=== PATIENT | female | born 1940 | race Caucasian/White ===

== ENCOUNTER 2018-03-30 06:46 | Emergency (ER) | payer MEDICARE, OTHER, SELFPAY ==
[2018-03-30 07:04] VITALS: BP 183/82; PULSE 97; RESP 17; TEMP 36.2; O2SAT 99
[2018-03-30 07:28] LABS: Appearance Urine UA SL CLOUDY; Bacteria Urine None Seen; Bilirubin Urine UA NEGATIVE (NEGATIVE); Color Urine UA YELLOW; Glucose Urine UA 1+ g/dL (Normal); Ketones Urine UA NEGATIVE (NEGATIVE); Leukocyte Esterase Urine UA TRACE (NEGATIVE); Nitrite Urine UA NEGATIVE (Negative); Occult Blood Urine UA 1+ (Negative); Protein Urine UA NEGATIVE (Negative); Specific Gravity Urine UA 1.015 (1.000-1.035); Urobilinogen Urine UA 0.2 E.U./dL (0.2); pH Urine UA 7.5 (4.5-8.0)
[2018-03-30 07:32] LABS: Amorphous Sediment Urine 1+; Culture Indicated Urine Cult Not Indicated; RBC Urine 1-5/HPF (0-5/HPF); WBC Urine 0-1/HPF (0-5/HPF)
--- NOTE | 2018-03-30 07:52 | ED.ABDPAIN ---
HPI - Abdominal Pain General Chief Complaint: Urogenital-Female Stated Complaint: pain in right side vomiting all night Time Seen by Provider: 03/30/18 07:41 Source: patient Mode of arrival: ambulatory Limitations: no limitations History of Present Illness HPI narrative: Patient complains of right flank pain and vomiting that started in the middle of the night. She states she was feeling totally fine yesterday, but that the pain awoke her from sleep. She states that the nausea said in shortly afterward. Patient states she has felt as though she needs to urinate, but has been unable to do so. She states that ?nothing wants to come out?. Patient states she has not had any other symptoms; no fever, cough, shortness of breath, chest pain, or hematuria. Patient has a colostomy bag, and states her output has been normal. Patient states she has a history of ovarian cancer but this is in remission and she is not currently being treated. She still has her gallbladder and appendix. No other complaints at this time. Pain at worst is 7/10; current pain is 5/10. Nothing makes pain better or worse. Pain is sharp in nature. Related Data Previous Rx's Medication Instructions Recorded hydrocodone-acetaminophen 1 tab PO Q4-6H PRN #10 tab 03/30/18 ondansetron 4 mg PO Q6-8H PRN #14 tab 03/30/18 tamsulosin [Flomax] 0.4 mg PO DAILY #7 cap 03/30/18 Allergies Allergy/AdvReac Type Severity Reaction Status Date / Time Penicillins Allergy Intermediate Verified 03/30/18 07:07 Review of Systems Review of Systems All systems reviewed & are unremarkable except as noted in HPI and below Constitutional Denies chills, Denies fever(s), Denies lethargy and Denies weakness Eyes Denies change in vision, Denies eye discharge, Denies irritation and Denies loss of vision ENT Ears, Nose, Mouth, and Throat: Denies change in voice, Denies neck pain and Denies sore throat Cardiovascular Denies chest pain, Denies irregular heart rhythm, Denies lightheadedness, Denies palpitations, Denies dyspnea, Denies dyspnea on exertion and Denies orthopnea Respiratory Denies cough, Denies dyspnea, Denies dyspnea on exertion and Denies wheezing Gastrointestinal Gastrointestinal: Reports abdominal pain (Flank, right), Denies change in bowel habits, Denies diarrhea, Reports nausea and Reports vomiting Genitourinary Denies hematuria, Denies flank pain, Denies urinary incontinence and Denies urinary urgency Musculoskeletal Denies neck pain Integumentary/Breasts Denies pruritus, Denies erythema, Denies rash and Denies wounds Neurologic Denies confusion, Denies loss of vision and Denies weakness Psychiatric Denies anxiety, Denies confusion, Denies depression, Denies homicidal ideation and Denies suicidal ideation Endocrine Denies palpitations Hematologic/Lymphatic Denies easy bruising Allergic/Immunologic Denies wheezing [facility] Medical History Colostomy in place (Acute) Ovarian cancer (Acute) Social History Smoking Status: Unknown if ever smoked Exam Initial Vital Signs Initial Vital Signs: Vital Signs Temperature 97.1 F L 03/30/18 07:04 Pulse Rate 97 H 03/30/18 07:04 Respiratory Rate 17 03/30/18 07:04 Blood Pressure 183/82 H 03/30/18 07:04 Pulse Oximetry 99 03/30/18 07:04 Const General: cooperative and well developed Nutritional Appearance: well nourished Orientation: alert, awake, oriented x3 and not confused [facility] Head: normocephalic and atraumatic Ears: external ears normal Nose: external nose normal and No nasal discharge Face and sinus: face symmetric and No dry mucous membranes Mouth: oral mucosae normal and moist mucous membranes Teeth and gingiva: dentition normal Eyes General: appearance normal, both eyes and all related structures Eyelids: eyelids normal Conjunctivae: conjunctivae normal Sclera: sclerae normal Pupils: PERRL EOM: EOM intact bilaterally Neck Neck: normal visual inspection, trachea midline, No lymphadenopathy, No midline deformity and No JVD Lymphatic: No lymphedema Chest Chest: normal inspection of the chest Resp Effort & Inspection: normal respiratory effort, able to speak in complete sentences, no respiratory distress and no use of accessory muscles Auscultation: clear to auscultation bilaterally, no rales, no rhonchi and no wheezes Cardio Rate: regular rate Rhythm: regular rhythm Heart Sounds: no click, no gallops, no murmurs and no rubs Pulses: normal peripheral pulses GI Inspection: non-distended Palpation: soft, no hepatosplenomegaly, No guarding, No pulsatile mass and tender (Moderate, right flank) Back/Spine/Pelvis Back: No CVA tenderness Cervical Spine: cervical ROM normal and No pain with cervical ROM Thoracic/Lumbar Spine: thoracic and lumbar spine normal to inspection Skin General: no rashes or lesions noted, No jaundice and No petechiae Neuro General: alert, oriented x3, gait normal and no focal motor deficits Speech: speech normal Extrem General: full ROM, no clubbing, cyanosis or edema, no pedal edema and no calf tenderness Psych Appearance: well kempt Mental Status: mental status grossly normal Attitude: cooperative Thought Content: normal and suicidality Judgment: judgment good Course Course Narrative: Patient was treated with IV fluids, Zofran, and Toradol initially, and worked up with CBC, CMP, and urinalysis. The patient's urinalysis was minimally positive, with only trace leukocyte esterase, did feel she should have a CT scan of the abdomen and pelvis to evaluate for possible urinary calculi. This was done, and did show right-sided calculi, with the largest stone 7 mm and located at the UVJ. I discussed this with the patient, who was feeling much better after symptomatic management. We discussed home management, as well as the usual indications for return, and the possible need for urology follow-up. Patient and family have expressed understanding. Orders Ordered: Discontinued Medications Sodium Chloride (Normal Saline 0.9%) 1,000 mls @ 1,000 mls/hr IV BOLUS ONE Stop: 03/30/18 08:48 Last Infusion: 03/30/18 09:54 Dose: 0 mls/hr Admin: 03/30/18 08:12 Dose: 1,000 mls/hr Ketorolac Tromethamine (Toradol) 30 mg IV NOW ONE Stop: 03/30/18 07:50 Last Admin: 03/30/18 08:12 Dose: 30 mg Ondansetron HCl (Zofran) 4 mg IV NOW ONE Stop: 03/30/18 07:50 Last Admin: 03/30/18 08:12 Dose: 4 mg Vital Signs - 8 hr 03/30/18 07:04 Temperature 97.1 F L Pulse Rate 97 H Respiratory Rate 17 Blood Pressure 183/82 H Pulse Oximetry 99 MDM - Abdominal Pain Medical Records Attestation: I reviewed the patient's medical records. Lab Data Attestation: I reviewed the patient's lab results. Result diagrams: 03/30/18 08:10 03/30/18 08:10 Lab Results 03/30/18 03/30/18 03/30/18 Range/Units 07:21 08:10 08:10 WBC 11.4 H (4.5-11.0) X10^3/uL RBC 4.85 (4.0-5.2) X10^6/uL Hgb 14.7 (12.0-16.0) g/dL Hct 44.1 (36-46) % MCV 91.0 (80-100) fL MCH 30.3 (26-34) PG MCHC 33.3 (30-36) % RDW 13.1 (11.6-14.8) % Plt Count 243 (150-400) X10^3/uL Neut % (Auto) 85.3 H (50-75) % Lymph % (Auto) 9.6 L (25-40) % [place] % (Auto) 4.5 (3-14) % Eos % (Auto) 0.1 L (2-4) % Baso % (Auto) 0.5 (0-2) % Neut # (Auto) 9800 H (0369-6752) /uL Sodium 139 (137-145) mmol/L Potassium 3.7 (3.4-5.1) mmol/L Chloride 100 (98-107) mmol/L Carbon Dioxide 27 (22-32) mmol/L BUN 22 H (7-17) mg/dL Creatinine 0.80 (0.52-1.04) mg/dL Estimated GFR > 60.0 (>60) mL/min BUN/Creatinine Ratio 27.5 H (6-22) Glucose 171 H (80-110) mg/dL Calcium 9.3 (8.4-10.2) mg/dL Total Bilirubin 0.4 (0.2-1.3) mg/dL AST 28 (14-36) IU/L ALT 24 (9-52) IU/L Alkaline Phosphatase 73 (38-126) U/L Total Protein 7.2 (6.3-8.2) g/dL Albumin 4.4 (3.5-5.0) g/dL Globulin 2.8 (1.7-4.1) g/dL Albumin/Globulin Ratio 1.6 (1.0-2.8) Urine Color Yellow Urine Appearance Sl cloudy Urine pH 7.5 (4.5-8.0) Ur Specific [place] 1.015 (1.000-1.035) Urine Protein Negative (Negative) Urine Glucose (UA) 1+ (Normal) g/dL Urine Ketones Negative (NEGATIVE) Urine Occult Blood 1+ H (Negative) Urine Nitrate Negative (Negative) Urine Bilirubin Negative (NEGATIVE) Urine Urobilinogen 0.2 (0.2) E.U./dL Ur Leukocyte Esterase Trace H (NEGATIVE) Urine RBC 1-5/hpf (0-5/HPF) Urine WBC 0-1/hpf (0-5/HPF) Amorphous Sediment 1+ Urine Bacteria None seen (None) Ur Culture Indicated? Cult not indicated Micro UA Comment Not Reportable Imaging Data CT scan - abdomen: Radiologist's impression: PROCEDURE: CT KIDNEY URETER BLADDER (KUB) INDICATIONS: Right flank pain, can't urinate TECHNIQUE: Noncontrast 5 mm thick sections acquired from the diaphragms to the symphysis. 5 mm thick coronal and sagittal reformats were then performed. For radiation dose reduction, the following was used: automated exposure control, adjustment of mA and/or kV according to patient size. COMPARISON: None. FINDINGS: Image quality: Excellent. Lung bases: Mild dependent atelectasis in posterior aspect of the lateral lung bases are seen. Heart size is normal. Urinary system: Enlarged right kidney is seen with marked distention of right renal collecting system and right renal pelvis. Markedly dilated right ureter is also seen to the level of the right UVJ. 7.5 mm calcification is seen in the region of right UVJ with a adjacent 2 mm calcification also seen. Moderate right perinephric fat stranding is seen. Left kidney is normal in size. There is no left-sided renal stone or hydronephrosis. No left perinephric fat stranding. Left ureter is normal in size. Bladder wall thickness is normal; no calcified bladder stones. A few phleboliths are seen scattered in bilateral lower pelvis. Other solid organs: Liver is normal in size. Gallbladder is within normal limits. Pancreas is normal in contours. Spleen is normal in size. No adrenal nodules. Peritoneum and bowel: Unenhanced bowel loops demonstrate normal wall thickness and caliber. No free fluid or air. Left-sided ostomy is seen. No evidence of bowel obstruction. Nodes and vessels: No retroperitoneal or mesenteric adenopathy by size criteria. Aorta and inferior vena cava are normal in caliber. Abdominal wall: Small umbilical hernia is seen containing fat and a short segment of small bowel loop with no evidence of incarceration.. Pelvis: No free pelvic fluid. No inguinal hernias or adenopathy. Bones: No suspicious bony lesions. No vertebral body compression fractures. IMPRESSION: 1. 7.5 mm and 2 mm right UVJ stones with moderate to severe right-sided hydronephrosis and hydroureter. Moderate right perinephric fat stranding. 2. No left-sided renal stone hydronephrosis. 3. Prior abdominal surgery with a left-sided ostomy in place. Small umbilical hernia containing a short segment of small bowel loop with no evidence of incarceration. No free fluid or free air. Dictated by: Bebeto Villafana M.D. on 03/30/2018 at 8:41 Approved by: Bebeto Villafana M.D. on 03/30/2018 at 8:47 Discharge Plan Departure Patient Disposition: Home Clinical Impression: Urinary calculi Discharge Date/Time: 03/30/18 09:55 Interventions: ED Discharge Assessment Last Done: 03/30/18 09:54 Instructions: DI for Kidney Stones Activity Restrictions/Additional Instructions: Your CT scan today shows 2 kidney stones coming down the right side. These have made it almost all the way to your bladder, and at this point, will be expected to pass well on their own. There are no obvious stones left in her kidneys, although you could form or over time. If you do not pass the stones by Mireya, please call the urologist's office to set up a follow-up appointment. Prescriptions: New hydrocodone-acetaminophen 5-325 mg tablet 1 tab PO Q4-6H PRN (Reason: pain) Qty: 10 RF: 0 tamsulosin [Flomax] 0.4 mg capsule 0.4 mg PO DAILY Qty: 7 RF: 0 ondansetron 4 mg tablet,disintegrating 4 mg PO Q6-8H PRN (Reason: nausea and vomiting) Qty: 14 RF: 0 Referrals: [facility] [Provider Group]
[2018-03-30] MEDS: KETOROLAC 60 MG/2 ML VIAL 30 MG IV (08:12)
[2018-03-30] MEDS: SODIUM CHLORIDE 0.9% 1,000 ML 1000 ML IV (08:12)
[2018-03-30] MEDS: ONDANSETRON 4 MG/2 ML INJ IV (08:12)
--- NOTE | 2018-03-30 08:16 | DI.CT.S_ITS ---
PROCEDURE: CT KIDNEY URETER BLADDER (KUB) INDICATIONS: Right flank pain, can't urinate TECHNIQUE: Noncontrast 5 mm thick sections acquired from the diaphragms to the symphysis. 5 mm thick coronal and sagittal reformats were then performed. For radiation dose reduction, the following was used: automated exposure control, adjustment of mA and/or kV according to patient size. COMPARISON: None. FINDINGS: Image quality: Excellent. Lung bases: Mild dependent atelectasis in posterior aspect of the lateral lung bases are seen. Heart size is normal. Urinary system: Enlarged right kidney is seen with marked distention of right renal collecting system and right renal pelvis. Markedly dilated right ureter is also seen to the level of the right UVJ. 7.5 mm calcification is seen in the region of right UVJ with a adjacent 2 mm calcification also seen. Moderate right perinephric fat stranding is seen. Left kidney is normal in size. There is no left-sided renal stone or hydronephrosis. No left perinephric fat stranding. Left ureter is normal in size. Bladder wall thickness is normal; no calcified bladder stones. A few phleboliths are seen scattered in bilateral lower pelvis. Other solid organs: Liver is normal in size. Gallbladder is within normal limits. Pancreas is normal in contours. Spleen is normal in size. No adrenal nodules. Peritoneum and bowel: Unenhanced bowel loops demonstrate normal wall thickness and caliber. No free fluid or air. Left-sided ostomy is seen. No evidence of bowel obstruction. Nodes and vessels: No retroperitoneal or mesenteric adenopathy by size criteria. Aorta and inferior vena cava are normal in caliber. Abdominal wall: Small umbilical hernia is seen containing fat and a short segment of small bowel loop with no evidence of incarceration.. Pelvis: No free pelvic fluid. No inguinal hernias or adenopathy. Bones: No suspicious bony lesions. No vertebral body compression fractures. IMPRESSION: 1. 7.5 mm and 2 mm right UVJ stones with moderate to severe right-sided hydronephrosis and hydroureter. Moderate right perinephric fat stranding. 2. No left-sided renal stone hydronephrosis. 3. Prior abdominal surgery with a left-sided ostomy in place. Small umbilical hernia containing a short segment of small bowel loop with no evidence of incarceration. No free fluid or free air. Dictated by: Bebeto Villafana M.D. on 03/30/2018 at 8:41 Approved by: Bebeto Villafana M.D. on 03/30/2018 at 8:47
[2018-03-30 08:18] LABS: Add Manual Diff / Slide Review NO; Basophils Percent Auto 0.5 % (0-2); Eosinophils Percent Auto 0.1 % (2-4); Hematocrit 44.1 % (36-46); Hemoglobin 14.7 g/dL (12.0-16.0); Lymphocytes Percent Auto 9.6 % (25-40); Mean Corpuscular HGB Conc 33.3 % (30-36); Mean Corpuscular Hemoglobin 30.3 PG (26-34); Monocytes Percent Auto 4.5 % (3-14); Neutrophils Absolute Auto 9800 /uL (1500-7000); Neutrophils Percent Auto 85.3 % (50-75); Platelet Count 243 X10^3/uL (150-400); Red Blood Cell Count 4.85 X10^6/uL (4.0-5.2); Red Cell Distribution Width 13.1 % (11.6-14.8); White Blood Cell Count 11.4 X10^3/uL (4.5-11.0)
[2018-03-30 08:27] LABS: Alanine Aminotransferase 24 IU/L (9-52); Albumin 4.4 g/dL (3.5-5.0); Albumin Globulin Ratio 1.6 (1.0-2.8); Alkaline Phosphatase 73 U/L (38-126); Aspartate Aminotransferase 28 IU/L (14-36); BUN Creatinine Ratio 27.5 (6-22); Bilirubin Total 0.4 mg/dL (0.2-1.3); Blood Urea Nitrogen 22 mg/dL (7-17); Calcium 9.3 mg/dL (8.4-10.2); Carbon Dioxide 27 mmol/L (22-32); Chloride 100 mmol/L (98-107); Estimated Glomerular Filt Rate > 60.0 mL/min (>60); Globulin 2.8 g/dL (1.7-4.1); Glucose 171 mg/dL (80-110); HEMOLYSIS < 15 (0-50); Potassium 3.7 mmol/L (3.4-5.1); Sodium 139 mmol/L (137-145); Total Protein 7.2 g/dL (6.3-8.2)
[2018-03-30 09:27] VITALS: BP 166/76; PULSE 77; RESP 14; O2SAT 99
[2018-03-30 09:54] VITALS: BP 109/89; PULSE 73; RESP 15; O2SAT 97
--- NOTE | 2018-03-30 09:56 | PC.NURSE ---
pt sent home with urine strainer, specimen cup and hat to urinate in. pt verbalized understanding of use of material.
== END 2018-03-30 09:55 | disposition home or self-care (01) ==
PROVIDERS: Emergency Medicine; Emergency Provider Emergency Medicine
DX: N20.0 Calculus of kidney (principal)
CPT/HCPCS: 36591; 74176; 80053; 81001; 85025; 96361; 96374; 96375; 99283; 99284; J1885; J2405

== ENCOUNTER 2021-01-27 12:24 | Inpatient (IN) | payer MEDICARE, OTHER, SELFPAY ==
[2021-01-27] VITALS (13 sets, daily range): BP systolic 125–151; BP diastolic 66–82; PULSE 81–103; RESP 16–35; TEMP 36.2–36.9; O2SAT 94–99; BMI 27.4
[2021-01-27] MEDS: PANTOPRAZOLE 40 MG VIAL IV ×2 (13:45→20:54)
[2021-01-27] MEDS: ONDANSETRON 4 MG/2 ML INJ IV (13:45)
[2021-01-27 13:49] LABS: Add Manual Diff / Slide Review NO; Basophils Absolute Auto 100 /uL (0-100); Eosinophils Absolute Auto 100 /uL (0-450); Eosinophils Percent Auto 0.4 % (2-4); Hematocrit 28.8 % (36-46); Hemoglobin 9.4 g/dL (12.0-16.0); Lymphocytes Absolute Auto 2800 /uL (1100-4500); Lymphocytes Percent Auto 22.8 % (25-40); Mean Corpuscular HGB Conc 32.8 % (30-36); Mean Corpuscular Hemoglobin 30.4 PG (26-34); Mean Corpuscular Volume 92.7 fL (80-100); Monocytes Absolute Auto 1000 /uL (0-900); Monocytes Percent Auto 8.2 % (3-14); Neutrophils Absolute Auto 8400 /uL (1500-7000); Neutrophils Percent Auto 67.6 % (50-75); Platelet Count 234 X10^3/uL (150-400); Red Cell Distribution Width 13.4 % (11.6-14.8); White Blood Cell Count 12.4 X10^3/uL (4.5-11.0)
[2021-01-27 14:05] LABS: Lactate (Lactic Acid) 1.2 mmol/L (0.7-2.1)
[2021-01-27 14:06] LABS: Alanine Aminotransferase 23 IU/L (<35); Albumin 3.9 g/dL (3.5-5.0); Albumin Globulin Ratio 1.6 (1.0-2.8); Alkaline Phosphatase 53 U/L (38-126); Aspartate Aminotransferase 27 IU/L (14-36); BUN Creatinine Ratio 47.5 (6-22); Bilirubin Total 0.2 mg/dL (0.2-1.3); Blood Urea Nitrogen 28 mg/dL (7-17); Calcium 8.7 mg/dL (8.4-10.2); Carbon Dioxide 27 mmol/L (22-32); Chloride 105 mmol/L (98-107); Estimated Glomerular Filt Rate > 60.0 mL/min (>60); Globulin 2.4 g/dL (1.7-4.1); Glucose 107 mg/dL (80-110); HEMOLYSIS < 15 (0-50); Potassium 3.8 mmol/L (3.4-5.1); Sodium 138 mmol/L (137-145); Total Protein 6.3 g/dL (6.3-8.2)
--- NOTE | 2021-01-27 14:40 | ED.GIBLEED ---
HPI - GI Bleed General Chief complaint: GI Bleed Stated complaint: Throwing Up Blood Time Seen by Provider: 01/27/21 14:40 Source: patient Mode of arrival: Ambulatory Limitations: no limitations History of Present Illness HPI Narrative: Patient is a 80-year-old female history of breast her x2, ovarian cancer, colon cancer presenting with 2 days of hematemesis and black tarry stool. She has an ostomy she has noted some tarry stool in her ostomy she also has vomited what she calls dark blood twice. She is dizzy and lightheaded when she walks. She a little short of breath. She has no abdominal pain. No fever or chills. Related Data Home Medications Medication Instructions Recorded Confirmed calcium carbonate 600 mg (1,500 1 tab PO DAILY 01/27/21 01/27/21 mg)-vitamin D3 200 unit tablet lisinopril 10 mg tablet 10 mg PO DAILY 01/27/21 01/27/21 loratadine 10 mg tablet 10 mg PO DAILY 01/27/21 01/27/21 vitamin E 200 unit capsule 200 unit PO DAILY 01/27/21 01/27/21 Allergies Allergy/AdvReac Type Severity Reaction Status Date / Time Penicillins Allergy Intermediate Verified 03/30/18 07:07 Review of Systems Review of Systems Narrative: GENERAL: Denies chills, fatigue, malaise, fever, sweats, travel HEENT: Denies sinus pain, ear pain, sore throat, difficulty swallowing, neck pain RESPIRATORY: Denies dyspnea, cough, wheezing, hemoptysis, sputum. CARDIOVASCULAR: Denies chest pain, palpitations, orthopnea, edema GASTROINTESTINAL: See HPI : Denies dysuria, frequency, incontinence, hematuria, urinary retention, flank pain. MUSCULOSKELETAL: Denies weakness, joint pain, or bony pain SKIN: No rash, no erythema, no pruritus NEUROLOGIC: Denies weakness, dizziness, headache, numbness, change in speech, confusion PSYCHIATRIC: No concerning psychosocial issues. 12 point review of systems is negative except for those stated above and HPI Patient History Medical History Colostomy in place HTN (hypertension) Ovarian cancer Surgical History H/O partial resection of colon H/O total hysterectomy with bilateral salpingo-oophorectomy (BSO) Family History Mother Cancer Daughter Cancer Family/Other Cancer Social History household members: spouse Smoking Status: Never smoker Smoking Status: Never smoker alcohol intake frequency: other Substance Use Type: does not use Exam Initial Vital Signs Initial Vital Signs: Vital Signs Temperature 98.4 F 01/27/21 13:06 Pulse Rate 103 H 01/27/21 13:06 Respiratory Rate 18 01/27/21 13:06 Blood Pressure 139/82 01/27/21 13:06 Pulse Oximetry 99 01/27/21 13:06 GENERAL: Alert well-appearing 80-year-old femaleand in [no acute] distress. HEENT: Head atraumatic,EOMI, pupils reactive, face symmetric, [moist] mucous membranes CARDIOVASCULAR: Regular rate and rhythm without murmurs, rubs or gallops. RESPIRATORY: Breath sounds equal bilaterally, no wheezes rales or rhonchi. ABDOMEN: Soft, nontender. Normoactive bowel sounds all 4 quadrants. No guarding or rebound. Left lower quadrant ostomy + guaiac : No CVA tenderness EXTREMITIES: Normal range of motion, no clubbing or edema. Neurovascularly intact NEUROLOGICAL: Alert and oriented x4.Normal gait and speech. Cranial nerves II through XII grossly intact. SKIN: Warm, dry, no laceration, no petechiae, no rashes or lesions. Course Orders Ordered: ED Orders 01/27/21 13:35 Complete Blood Count AUTO DIFF Stat Comprehensive Metabolic Panel Stat Lactate (Lactic Acid) Stat Type and Screen Stat 01/27/21 13:55 EKG-12 Lead Stat 01/27/21 15:05 COVID19 - ADMIT ([employer] swab/PCR) Stat Acetaminophen (Acetaminophen 325 Mg Tablet) 650 mg PO Q6HR PRN PRN Reason: Fever/Mild Pain (1-3) Sodium Chloride (Normal Saline 0.9%) 1,000 mls @ 75 mls/hr IV CONT DONNA Last Admin: 01/27/21 18:02 Dose: 75 mls/hr Documented by: KKNOTT Ondansetron HCl (Ondansetron 4 Mg/2 Ml Inj) 4 mg IV Q8HR PRN PRN Reason: Nausea And Vomiting Pantoprazole Sodium (Pantoprazole 40 Mg Vial) 40 mg IV BID DONNA Discontinued Medications Ondansetron HCl (Ondansetron 4 Mg/2 Ml Inj) 4 mg IV NOW ONE Stop: 01/27/21 13:06 Last Admin: 01/27/21 13:45 Dose: 4 mg Documented by: DEB Pantoprazole Sodium (Pantoprazole 40 Mg Vial) 40 mg IV NOW ONE Stop: 01/27/21 13:14 Last Admin: 01/27/21 13:45 Dose: 40 mg Documented by: DEB Polyethylene Glycol/Electrolytes (Fit4131/Sod Sulf,Bicarb,Cl/Kcl 4,000 Ml Solution) 2,000 ml PO NOW ONE Stop: 01/27/21 17:16 Last Admin: 01/27/21 18:02 Dose: 2,000 ml Documented by: GAVIN Vital Signs Vital signs: Vital Signs - 8 hr 01/27/21 13:06 01/27/21 14:48 01/27/21 15:00 Temperature 98.4 F Pulse Rate 103 H 91 H 88 Respiratory Rate 18 22 26 H Blood Pressure 139/82 Pulse Oximetry 99 97 99 01/27/21 15:01 Temperature Pulse Rate 86 Respiratory Rate 35 H Blood Pressure 151/69 H Pulse Oximetry 96 MDM - GI Bleed Lab Data Result diagrams: 01/27/21 13:35 01/27/21 13:35 Labs: Lab Results 01/27/21 01/27/21 01/27/21 Range/Units 13:35 13:35 13:35 WBC 12.4 H (4.5-11.0) X10^3/uL RBC 3.10 L (4.0-5.2) X10^6/uL Hgb 9.4 L (12.0-16.0) g/dL Hct 28.8 L (36-46) % MCV 92.7 (80-100) fL MCH 30.4 (26-34) PG MCHC 32.8 (30-36) % RDW 13.4 (11.6-14.8) % Plt Count 234 (150-400) X10^3/uL Neut % (Auto) 67.6 (50-75) % Lymph % (Auto) 22.8 L (25-40) % [place] % (Auto) 8.2 (3-14) % Eos % (Auto) 0.4 L (2-4) % Baso % (Auto) 1.0 (0-2) % Neut # (Auto) 8400 H (2498-9315) /uL Lymph # (Auto) 2800 (5575-2290) /uL [place] # (Auto) 1000 H (0-900) /uL Eos # (Auto) 100 (0-450) /uL Baso # (Auto) 100 (0-100) /uL Sodium 138 (137-145) mmol/L Potassium 3.8 (3.4-5.1) mmol/L Chloride 105 (98-107) mmol/L Carbon Dioxide 27 (22-32) mmol/L BUN 28 H (7-17) mg/dL Creatinine 0.59 (0.52-1.04) mg/dL Estimated GFR > 60.0 (>60) mL/min BUN/Creatinine Ratio 47.5 H (6-22) Glucose 107 (80-110) mg/dL Lactate (0.7-2.1) mmol/L Calcium 8.7 (8.4-10.2) mg/dL Total Bilirubin 0.2 (0.2-1.3) mg/dL AST 27 (14-36) IU/L ALT 23 (<35) IU/L Alkaline Phosphatase 53 (38-126) U/L Total Protein 6.3 (6.3-8.2) g/dL Albumin 3.9 (3.5-5.0) g/dL Globulin 2.4 (1.7-4.1) g/dL Albumin/Globulin Ratio 1.6 (1.0-2.8) Blood Type O Positive Antibody Screen Negative 01/27/21 Range/Units 13:35 WBC (4.5-11.0) X10^3/uL RBC (4.0-5.2) X10^6/uL Hgb (12.0-16.0) g/dL Hct (36-46) % MCV (80-100) fL MCH (26-34) PG MCHC (30-36) % RDW (11.6-14.8) % Plt Count (150-400) X10^3/uL Neut % (Auto) (50-75) % Lymph % (Auto) (25-40) % [place] % (Auto) (3-14) % Eos % (Auto) (2-4) % Baso % (Auto) (0-2) % Neut # (Auto) (1643-9523) /uL Lymph # (Auto) (3052-6214) /uL [place] # (Auto) (0-900) /uL Eos # (Auto) (0-450) /uL Baso # (Auto) (0-100) /uL Sodium (137-145) mmol/L Potassium (3.4-5.1) mmol/L Chloride (98-107) mmol/L Carbon Dioxide (22-32) mmol/L BUN (7-17) mg/dL Creatinine (0.52-1.04) mg/dL Estimated GFR (>60) mL/min BUN/Creatinine Ratio (6-22) Glucose (80-110) mg/dL Lactate 1.2 (0.7-2.1) mmol/L Calcium (8.4-10.2) mg/dL Total Bilirubin (0.2-1.3) mg/dL AST (14-36) IU/L ALT (<35) IU/L Alkaline Phosphatase (38-126) U/L Total Protein (6.3-8.2) g/dL Albumin (3.5-5.0) g/dL Globulin (1.7-4.1) g/dL Albumin/Globulin Ratio (1.0-2.8) Blood Type Antibody Screen ECG Data Interpretation: Normal sinus rhythm rate 85 MI interval 126 QRS [address] changes MDM Narrative Medical decision making narrative: Patient is having sinus symptoms consistent with GI bleeding she is guaiac positive. Hemoglobin hematocrit are down from her previous numbers in 2018. She is also symptomatic with dizziness lightheadedness and shortness of breath with exertion. She overall is hemodynamically stable. I have discussed with her colonoscopy she states that she will need a pediatric scope for her ostomy. MILLI, agrees with observation confirms that we do have a pediatric scope and recommends admit to medicine Dr. Rojas updated patient's symptoms and accept patient Discharge Plan Departure Patient Disposition: Admitted as Observation Clinical Impression: Acute GI bleeding Admit Date/Time: 01/27/21 15:01 Admit Provider: Olman Rojas
[2021-01-27 16:10] LABS: COVID19 - ADMIT (NP swab/PCR) Negative (Negative)
--- NOTE | 2021-01-27 17:10 | P.HP_ITS ---
History of Present Illness History of Present Illness Date Patient Seen: 01/27/21 Time Patient Seen: 17:10 Chief complaint: Throwing Up Blood Narrative: This is a 80-year-old female with a past medical history of hypertension, and history of ovarian, breast, and colon cancer status post partial colectomy with colostomy placement (BRCA2 +) who presented to the [facility] room today with 2 days of hematemesis and black stool from her ostomy. Over this time she has also felt lightheaded when she walks but denies any shortness of breath, abdominal pain, fever or chills. She denies any recent rashes, joint pains, or muscle aches. She thinks that she has increased slightly in her stoma output and it has been somewhat looser than her usual consistency. She had a couple episodes of vomiting over the last couple of days that were which she described as dark ramos in color, as well as very dark appearing stool. She states her last colonoscopy was over 6 years ago, and does not recall a prior EGD but may have had one in the remote past. In the emergency room, the patient's vital signs were unremarkable. Initial laboratory evaluation showed a mild leukocytosis with WBC 12.4, mild anemia with hemoglobin of 9.4, her previous lab testing showed a hemoglobin of 14 in 2018. Platelet count was unremarkable. Initial chemistries were also unremarkable. C OVID-19 testing was negative. In the emergency room, she was started on Protonix, had a type and screen, and the ER provider consult to General surgery who recommended admission to Medicine with a plan for colonoscopy and/or upper endoscopy tomorrow. Patient History Medical History (Updated 01/27/21 @ 17:11 by Olman Rojas DO) Colostomy in place HTN (hypertension) Ovarian cancer Surgical History (Updated 01/27/21 @ 17:11 by Olman Rojas DO) H/O partial resection of colon H/O total hysterectomy with bilateral salpingo-oophorectomy (BSO) Family & Social History Family History Mother Cancer Daughter Cancer Family/Other Cancer Social History: household members spouse Prior Living Arrangements House Safety & Behavioral: Feels Safe in Current Yes Environment Been Physically Hurt or No Threatened By a Person Suicidal Ideation Description None Suicide Plan Description No Plan Tobacco & Substance use: Smoking Status Never smoker alcohol intake frequency other Substance Use Type does not use Meds Home Medications and Allergies Home Medications Medication Instructions Recorded Confirmed Type calcium carbonate 600 mg (1,500 1 tab PO DAILY 01/27/21 01/27/21 History mg)-vitamin D3 200 unit tablet lisinopril 10 mg tablet 10 mg PO DAILY 01/27/21 01/27/21 History loratadine 10 mg tablet 10 mg PO DAILY 01/27/21 01/27/21 History vitamin E 200 unit capsule 200 unit PO DAILY 01/27/21 01/27/21 History Allergies Allergy/AdvReac Type Severity Reaction Status Date / Time Penicillins Allergy Intermediate Verified 03/30/18 07:07 Review of Systems Review of Systems Narrative: All other systems reviewed with the patient and are negative unless otherwise stated. Exam Vital Signs (past 8 hours): - 01/27/21 13:06 01/27/21 14:48 01/27/21 15:00 Temperature 98.4 F Pulse Rate 103 H 91 H 88 Respiratory Rate 18 22 26 H Blood Pressure 139/82 Pulse Oximetry 99 97 99 01/27/21 15:01 01/27/21 15:30 01/27/21 15:34 Temperature Pulse Rate 86 89 87 Respiratory Rate 35 H 34 H 20 Blood Pressure 151/69 H 140/66 140/66 Pulse Oximetry 96 97 98 01/27/21 16:00 01/27/21 16:35 Temperature 97.2 F L Pulse Rate 82 81 Respiratory Rate 19 16 Blood Pressure 125/66 139/70 Pulse Oximetry 96 95 Oxygen Delivery Method Room Air Oxygen Flow Rate 0 Narrative Exam Narrative: GENERAL APPEARANCE: Well developed, well nourished, in no acute distress. SKIN: Inspection of the skin reveals no rashes, ulcerations or petechiae. She has a slight pallor. HEENT: Normocephalic atraumatic, extraocular muscles are intact, oropharynx is clear and mucous membranes are moist, neck is supple without adenopathy NECK: Supple and symmetric. There was no thyroid enlargement, and no tenderness, or masses were felt. CHEST: Normal AP diameter and normal contour without any kyphoscoliosis. LUNGS: Auscultation of the lungs revealed no wheezes, rhonchi, or rales. CARDIOVASCULAR: There was a regular rate and rhythm without any murmurs, gallops, rubs. Peripheral pulses were 2+ and symmetric. ABDOMEN: Soft and nontender with normal bowel sounds. No ascites was noted. MUSCULOSKELETAL: There was no tenderness or effusions noted. Muscle strength and tone were normal. EXTREMITIES: No cyanosis, clubbing or edema. NEUROLOGIC: Alert and oriented x 3. Normal affect. Strength is +5/5 in the Upper Extremities and Lower Extremities Bilaterally. Sensation to touch was normal. Objective ECG Impression: Normal sinus rhythm, left ventricular hypertrophy, no ST or T-wave indications for ischemia. Labs Result Diagrams: 01/27/21 13:35 01/27/21 13:35 Labs: Laboratory Results - last 24 hr 01/27/21 01/27/21 01/27/21 13:35 13:35 13:35 WBC 12.4 H RBC 3.10 L Hgb 9.4 L Hct 28.8 L MCV 92.7 MCH 30.4 MCHC 32.8 RDW 13.4 Plt Count 234 Neut % (Auto) 67.6 Lymph % (Auto) 22.8 L [place] % (Auto) 8.2 Eos % (Auto) 0.4 L Baso % (Auto) 1.0 Neut # (Auto) 8400 H Lymph # (Auto) 2800 [place] # (Auto) 1000 H Eos # (Auto) 100 Baso # (Auto) 100 Sodium 138 Potassium 3.8 Chloride 105 Carbon Dioxide 27 BUN 28 H Creatinine 0.59 Estimated GFR > 60.0 BUN/Creatinine Ratio 47.5 H Glucose 107 Lactate Calcium 8.7 Total Bilirubin 0.2 AST 27 ALT 23 Alkaline Phosphatase 53 Total Protein 6.3 Albumin 3.9 Globulin 2.4 Albumin/Globulin Ratio 1.6 SARS-CoV-2 (PCR) Blood Type O Positive Antibody Screen Negative 01/27/21 01/27/21 13:35 15:05 WBC RBC Hgb Hct MCV MCH MCHC RDW Plt Count Neut % (Auto) Lymph % (Auto) [place] % (Auto) Eos % (Auto) Baso % (Auto) Neut # (Auto) Lymph # (Auto) [place] # (Auto) Eos # (Auto) Baso # (Auto) Sodium Potassium Chloride Carbon Dioxide BUN Creatinine Estimated GFR BUN/Creatinine Ratio Glucose Lactate 1.2 Calcium Total Bilirubin AST ALT Alkaline Phosphatase Total Protein Albumin Globulin Albumin/Globulin Ratio SARS-CoV-2 (PCR) Negative Blood Type Antibody Screen Assessment & Plan Assessment & Plan narrative: This is a 80-year-old female with a past medical history of hypertension, and history of ovarian, breast, and colon cancer status post partial colectomy with colostomy placement (BRCA2 +) who presented to the emergency room today with 2 days of hematemesis and black stool from her ostomy. Admitted for further management of her GI bleed. 1. GI bleeding - unclear if upper or lower in nature. BUN slightly elevated at 28. Diet tonight per surgery, NPO at midnight for colonoscopy with prep. Possible EGD tomorrow. - Continue protonix IV BID, IV fluids overnight - type and screen obtained. Goal Hg >7, unless further symptoms. - Appreciate surgical consultation by Dr. Mitchell. - follow h/h. - no recent fever, chills to suggest infetious etiology. 2. Acute blood loss anemia secondary to problem 1. - continue management as noted above 3. HTN - hold home lisinopril in setting of active bleeding. 4. History of colon, breast, ovarian cancer - reports no recent follow up with oncology. Last colonoscopy >6 years ago per patient. 5. BRCA2 + DVT: SCD Code: Full, surrogate decision maker is her (has parkinson's), or daughter. Discussed with patient she should consider forming an advanced directive or POLST form. Dispo: Admitted under observation status. I have utilized all available immediate resources to obtain, update, or review the patient's current medications. COVID-19 COVID-19 status: Negative Time Spent With Patient Critical Care time: I spent a total of [] minutes of critical care time on this patient's care today; this time is exclusive of procedural time. Quality MIPS - Admit I confirm the patient?s Advance Care Plan is present, Code status is documented, Surrogate decision maker is in patient?s record [If Yes, STOP here]: Yes
--- NOTE | 2021-01-27 17:44 | P.CONS_ITS ---
History of Present Illness Consult details Date Patient Seen: 01/27/21 Time Patient Seen: 17:44 Chief complaint: Throwing Up Blood Reason for consult: GI bleed Requesting provider: Jeri Barnes Narrative: Sudden onset of hematemesis. Had noticed dark stools as well. Fatique, no abdominal pain. No recent GI issues. Last colonoscopy long overdue. H/o colon cancer. Meds Home Medications and Allergies Home Medications Medication Instructions Recorded Confirmed Type calcium carbonate 600 mg (1,500 1 tab PO DAILY 01/27/21 01/27/21 History mg)-vitamin D3 200 unit tablet lisinopril 10 mg tablet 10 mg PO DAILY 01/27/21 01/27/21 History loratadine 10 mg tablet 10 mg PO DAILY 01/27/21 01/27/21 History vitamin E 200 unit capsule 200 unit PO DAILY 01/27/21 01/27/21 History Allergies Allergy/AdvReac Type Severity Reaction Status Date / Time Penicillins Allergy Intermediate Verified 03/30/18 07:07 Exam Vital Signs (past 8 hours): - 01/27/21 13:06 01/27/21 14:48 01/27/21 15:00 Temperature 98.4 F Pulse Rate 103 H 91 H 88 Respiratory Rate 18 22 26 H Blood Pressure 139/82 Pulse Oximetry 99 97 99 01/27/21 15:01 01/27/21 15:30 01/27/21 15:34 Temperature Pulse Rate 86 89 87 Respiratory Rate 35 H 34 H 20 Blood Pressure 151/69 H 140/66 140/66 Pulse Oximetry 96 97 98 01/27/21 16:00 01/27/21 16:35 01/27/21 17:15 Temperature 97.2 F L Pulse Rate 82 81 Respiratory Rate 19 16 Blood Pressure 125/66 139/70 Pulse Oximetry 96 95 98 Oxygen Delivery Method Room Air Oxygen Flow Rate 0 Const General: cooperative and comfortable Nutritional Appearance: average body habitus [facility] Head: normal to inspection Ears: hearing grossly normal bilaterally Eyes Conjunctivae: conjunctivae normal Sclera: sclerae normal Neck Neck: normal visual inspection and trachea midline Chest Chest: normal inspection of the chest Resp Effort & Inspection: normal respiratory effort and able to speak in complete sentences Cardio Rate: tachycardic Rhythm: regular rhythm GI Inspection: normal to inspection Other: colostomy in place, no bright red blood. Skin General: atrophy and dry skin Neuro General: patient alert and patient oriented x3 Cognition: normal cognition Psych Appearance: grossly normal and well kempt Judgment: judgment good Objective Labs Result Diagrams: 01/27/21 13:35 01/27/21 13:35 Labs: Laboratory Results - last 24 hr 01/27/21 01/27/21 01/27/21 13:35 13:35 13:35 WBC 12.4 H RBC 3.10 L Hgb 9.4 L Hct 28.8 L MCV 92.7 MCH 30.4 MCHC 32.8 RDW 13.4 Plt Count 234 Neut % (Auto) 67.6 Lymph % (Auto) 22.8 L [place] % (Auto) 8.2 Eos % (Auto) 0.4 L Baso % (Auto) 1.0 Neut # (Auto) 8400 H Lymph # (Auto) 2800 [place] # (Auto) 1000 H Eos # (Auto) 100 Baso # (Auto) 100 Sodium 138 Potassium 3.8 Chloride 105 Carbon Dioxide 27 BUN 28 H Creatinine 0.59 Estimated GFR > 60.0 BUN/Creatinine Ratio 47.5 H Glucose 107 Lactate Calcium 8.7 Total Bilirubin 0.2 AST 27 ALT 23 Alkaline Phosphatase 53 Total Protein 6.3 Albumin 3.9 Globulin 2.4 Albumin/Globulin Ratio 1.6 SARS-CoV-2 (PCR) Blood Type O Positive Antibody Screen Negative 01/27/21 01/27/21 13:35 15:05 WBC RBC Hgb Hct MCV MCH MCHC RDW Plt Count Neut % (Auto) Lymph % (Auto) [place] % (Auto) Eos % (Auto) Baso % (Auto) Neut # (Auto) Lymph # (Auto) [place] # (Auto) Eos # (Auto) Baso # (Auto) Sodium Potassium Chloride Carbon Dioxide BUN Creatinine Estimated GFR BUN/Creatinine Ratio Glucose Lactate 1.2 Calcium Total Bilirubin AST ALT Alkaline Phosphatase Total Protein Albumin Globulin Albumin/Globulin Ratio SARS-CoV-2 (PCR) Negative Blood Type Antibody Screen [facility] Medical History Colostomy in place HTN (hypertension) Ovarian cancer Surgical History H/O partial resection of colon H/O total hysterectomy with bilateral salpingo-oophorectomy (BSO) Family History (Updated 01/27/21 @ 17:47 by Olman Rojas DO) Mother Cancer Daughter Cancer Family/Other Cancer Social History household members: spouse Tobacco & Substance Use Smoking Status: Never smoker Assessment & Plan Assessment & Plan narrative: Sudden onset GI bleed, likely upper in origin. H/o colon cancer with no recent colonoscopy Plan: EGD and colonoscopy COVID-19 COVID-19 status: Negative Time Spent With Patient Critical Care time: I spent a total of [] minutes of critical care time on this patient's care today; this time is exclusive of procedural time.
[2021-01-27] MEDS: SODIUM CHLORIDE 0.9% 1,000 ML 75 ML IV (18:02)
[2021-01-27] MEDS: PEG3350/SOD SULF,BICARB,CL/KCL 4,000 ML SOLUTION 2000 ML PO (18:02)
[2021-01-27 21:42] LABS: Hematocrit 26.5 % (36-46); Hemoglobin 8.7 g/dL (12.0-16.0)
[2021-01-28] VITALS (25 sets, daily range): BP systolic 116–163; BP diastolic 67–97; PULSE 67–104; RESP 14–20; TEMP 36.2–37.1; O2SAT 93–98; BMI 27.4
--- NOTE | 2021-01-28 | PATH_ITS ---
[facility] Accession Number: [id number] . 01 Material submitted: . PART A: gastrointestinal site - ANTRAL BIOPSIES PART B: esophagus - DISTAL ESOPHAGUS BIOPSY . 01 Clinical history: . THROWING UP BLOOD . 02 Diagnosis: A. Antrum, Biopsies: Gastric antral mucosa with minimal chronic inflammation. Negative for Helicobacter organisms by immunohistochemistry. Negative for intestinal metaplasia. Negative for dysplasia or malignancy. . B. Distal Esophagus, Biopsy: Squamous mucosa with focal ulcer. Negative for fungal organisms on AB/PAS stain. Negative for cytomegalovirus or herpes simplex virus inclusions by immunohistochemistry. Negative for dysplasia or malignancy. I 02/03/2021 1513 Local . 02 Electronically signed: . Rahul Harvey MD, PhD, Pathologist NPI- [id number] . 01 Gross description: . Part A: ANTRAL BIOPSIES: Received in formalin is 1 fragment(s) of bhakta, soft tissue measuring 0.4 x 0.2 x 0.2 cm submitted entirely in 1 cassette(s) Part B: DISTAL ESOPHAGUS BIOPSY: Received in formalin are 3 fragment(s) of bhakta, soft tissue measuring 0.5 x 0.2 x 0.2 cm to 0.3 x 0.2 x 0.1 cm submitted entirely in 1 cassette(s) /GALLITO 01/29/2021 0146 Local . 02 Microscopic: . A. An immunohistochemical stain was performed to evaluate for Helicobacter organisms and is negative. The control stain showed appropriate reactivity. . B. An AB/PAS stain is negative for fungal organisms. Immunohistochemical stains are negative for cytomegalovirus or herpes simplex virus inclusions, respectively. All control stains show appropriate reactivity. . * This test was developed and its performance characteristics determined by [employer]. It has not been cleared or approved by the U.S. Food and Drug Administration. The FDA has determined that such clearance or approval is not necessary. This test is used for clinical purposes. It should not be regarded as investigational or for research. . . 02 Pathologist provided ICD-10: K29.70, K22.11 . 02 CPT . 340205, 632223, V74787, J02614, 020173 Performed at: 01 [facility] [address] [id number] MD Skyler Peterson MD Phone: [phone] Performed at: 02 [facility] [place] [address] [place] [id number] MD Zita Vargas MD Phone: [phone]
[2021-01-28 06:26] LABS: Add Manual Diff / Slide Review NO; Basophils Absolute Auto 0 /uL (0-100); Basophils Percent Auto 0.4 % (0-2); Eosinophils Absolute Auto 100 /uL (0-450); Eosinophils Percent Auto 1.9 % (2-4); Hemoglobin 7.2 g/dL (12.0-16.0); Lymphocytes Absolute Auto 2200 /uL (1100-4500); Mean Corpuscular Hemoglobin 29.9 PG (26-34); Mean Corpuscular Volume 93.6 fL (80-100); Monocytes Absolute Auto 800 /uL (0-900); Monocytes Percent Auto 9.8 % (3-14); Neutrophils Absolute Auto 4500 /uL (1500-7000); Neutrophils Percent Auto 58.9 % (50-75); Platelet Count 185 X10^3/uL (150-400); Red Cell Distribution Width 13.2 % (11.6-14.8); White Blood Cell Count 7.7 X10^3/uL (4.5-11.0)
[2021-01-28 06:27] LABS: Hematocrit 22.4 % (36-46)
[2021-01-28 06:34] LABS: Alanine Aminotransferase 18 IU/L (<35); Albumin 2.9 g/dL (3.5-5.0); Albumin Globulin Ratio 1.4 (1.0-2.8); Alkaline Phosphatase 39 U/L (38-126); Aspartate Aminotransferase 21 IU/L (14-36); Bilirubin Total 0.1 mg/dL (0.2-1.3); Blood Urea Nitrogen 15 mg/dL (7-17); Calcium 7.8 mg/dL (8.4-10.2); Carbon Dioxide 29 mmol/L (22-32); Chloride 106 mmol/L (98-107); Estimated Glomerular Filt Rate > 60.0 mL/min (>60); Globulin 2.1 g/dL (1.7-4.1); Glucose 95 mg/dL (80-110); HEMOLYSIS < 15 (0-50); Magnesium 1.9 mg/dL (1.6-2.3); Potassium 3.7 mmol/L (3.4-5.1); Sodium 137 mmol/L (137-145)
--- NOTE | 2021-01-28 10:25 | CM.DANOTE ---
DCP: Case received, EMR reviewed and met with patient. Introduced self and role. Was able to obtain information regarding patient's baseline activity status prior to hospitalization. DCP assessment completed with information currently available. Patient is a 80 year old female who admitted yesterday afternoon to the care of the hospitalist team. PCP: Dr. Johnson Porter. Payer: confirmed: Medicare/[employer] for Life. Patient came to the hospital via private vehicle secondary to her having nausea and vomiting, as well as black tarry stools. Patient was noted to be anemic, and holds current diagnosis of GI Bleed. She will be having transfusion today. She is also to be having a colonoscopy as well. Patient has ostomy, and has history of ovarian and colon cancer. Met with patient in her room. She was laying in bed, alert and oriented. Confirmed that patient resides in [place] with her spouse, Jj. She is independent at her baseline, does her own ostomy care, and uses no DME at her baseline. P: DCP to continue to follow. Patient should be able to go home when she is deemed medically stable. Rosa Maria Latham RN/Pipeline Construction Inspector Discharge Planning/Care Management CM Discharge Assessment Start: 01/28/21 10:22 Freq: Status: Active Protocol: Document 01/28/21 10:22 (Rec: 01/28/21 10:25 [id number]) Discharge Planning Assessment Assigned Business Ethics Professor Rosa Maria Latham RN/Pipeline Construction Inspector Advance Directives? No Advance Directives on File No History Provided By Patient,Medical Record Prior Living Arrangements House Household Members spouse Type of transporation used prior to Drives own vehicle admit Independent with ADL's Yes Is patient alert and oriented? Yes Caregiver for Another No Barriers to Discharge No Discharge Plan Home Transportation Arrangement Spouse Referrals Initiated None needed Whiteboard Updated in Patient Room with Yes name and ext. # of Business Ethics Professor Review Status In Process Next Review Type Continued Stay Review
[2021-01-28] MEDS: PANTOPRAZOLE 40 MG VIAL IV ×2 (10:28→21:04)
[2021-01-28] MEDS: SODIUM CHLORIDE 0.9% 1,000 ML 75 ML IV (13:41)
--- NOTE | 2021-01-28 14:53 | PC.NURSE ---
Day shift: Pt off unit for procedure at approx 1445.
[2021-01-28] MEDS: LACTATED RINGERS 1,000 ML 42 ML IV (15:12)
--- NOTE | 2021-01-28 15:16 | PM.PREOP ---
Pre-operative Note Interval Note History & Physical reviewed/Exam performed by Physician: Yes Changes to H&P: Yes H&P completed within 30 days and has changed as indicated here:: Patient received 2 units of PBRCs today. ASA Class (for procedural sedation): III
[2021-01-28] MEDS: LIDOCAINE 4% SOLN 50 ML 20 ML TOP (15:27)
--- NOTE | 2021-01-28 15:57 | P.OP.EGD&C_ITS ---
Operative Date/Time/Diagnoses Date of procedure: 01/28/21 Pre-op diagnosis: GI bleed Post-op diagnosis: same Procedure & Clinicians Surgeon: Chris Awad Procedure Notes Procedure in detail: Consent was obtained. The patient was taken to the endoscopy suite. Sedation was administered. A time out was performed. A bite block was placed. The endoscope was inserted and advanced to the duodenum. A photograph was taken. No abnormality was noted. The scope was withdrawn to the antrum. There was some patchy erythema but no melissa ulcerations. Random biopsies were taken from the antral mucosa using the regular forceps. The rest of the stomach was inspected and no other lesions were noted. The scope was retroflexed. There was a small hiatal hernia. The scope was straightened and withdrawn into the distal esophagus. There were some patches of erythema in the distal esophagus with some exudate. Biopsies were taken with forceps. Bleeding was minimal. The scope was withdra wn and the remainder of the esophagus was normal. We then attempted a colonoscopy through the colostomy. The bag was removed the the pediatric colonoscope was inserted through the colostomy. The scope was advanced to the transverse colon but there was too much opaque liquid stool to complete the procedure so it was terminated. Total EBL for the procedure was 20 mL. Post-procedure Disposition: PACU
[2021-01-28 17:20] LABS: Hemoglobin 10.8 g/dL (12.0-16.0); Mean Corpuscular HGB Conc 33.7 % (30-36); Mean Corpuscular Hemoglobin 30.6 PG (26-34); Mean Corpuscular Volume 90.6 fL (80-100); Platelet Count 182 X10^3/uL (150-400); Red Blood Cell Count 3.53 X10^6/uL (4.0-5.2); Red Cell Distribution Width 14.7 % (11.6-14.8); White Blood Cell Count 10.2 X10^3/uL (4.5-11.0)
--- NOTE | 2021-01-28 19:52 | P.PN_ITS ---
Subjective Subjective Date Patient Seen: 01/28/21 Time Patient Seen: 08:00 Interval history: Today she states she is feeling fine. She had some dark stools early, no BRBPR. No further vomiting. Exam Vital Signs (past 8 hours): - 01/28/21 13:39 01/28/21 15:06 01/28/21 15:59 Temperature 97.7 F 98.7 F Pulse Rate 81 88 83 Respiratory Rate 17 14 20 Blood Pressure 138/82 163/87 H 132/67 Pulse Oximetry 98 94 01/28/21 16:04 01/28/21 16:08 01/28/21 16:18 Temperature 98.6 F 98.5 F 97.1 F L Pulse Rate 84 79 78 Respiratory Rate 14 16 17 Blood Pressure 132/67 122/67 148/76 H Pulse Oximetry 94 97 95 01/28/21 16:33 01/28/21 16:48 01/28/21 17:18 Temperature 98.3 F 98.1 F Pulse Rate 79 94 H Respiratory Rate 16 18 Blood Pressure 120/67 123/80 Pulse Oximetry 98 93 94 Oxygen Delivery Method Room Air Oxygen Flow Rate 0 Narrative Exam Narrative: GENERAL APPEARANCE: no acute distress LUNGS: clear bilaterally, no wheezes, rhonchi, rales CARDIOVASCULAR: regular rate and rhythm with no murmurs ABDOMEN: Soft and nontender with normal bowel sounds Objective Labs Result Diagrams: 01/28/21 17:10 01/28/21 05:37 Labs: Laboratory Results - last 24 hr 01/27/21 01/27/21 01/28/21 13:35 21:00 05:37 WBC RBC Hgb 8.7 L Hct 26.5 L MCV MCH MCHC RDW Plt Count Neut % (Auto) Lymph % (Auto) [place] % (Auto) Eos % (Auto) Baso % (Auto) Neut # (Auto) Lymph # (Auto) [place] # (Auto) Eos # (Auto) Baso # (Auto) Sodium 137 Potassium 3.7 Chloride 106 Carbon Dioxide 29 BUN 15 Creatinine 0.60 Estimated GFR > 60.0 BUN/Creatinine Ratio 25.0 H Glucose 95 Calcium 7.8 L Magnesium Total Bilirubin 0.1 L AST 21 ALT 18 Alkaline Phosphatase 39 Total Protein 5.0 L Albumin 2.9 L Globulin 2.1 Albumin/Globulin Ratio 1.4 Blood Type O Positive Antibody Screen Negative Crossmatch See Detail 01/28/21 01/28/21 01/28/21 05:37 05:37 17:10 WBC 7.7 10.2 RBC 2.40 L 3.53 L Hgb 7.2 L 10.8 L Hct 22.4 L 32.0 L MCV 93.6 90.6 D MCH 29.9 30.6 MCHC 32.0 33.7 RDW 13.2 14.7 Plt Count 185 182 Neut % (Auto) 58.9 Lymph % (Auto) 29.0 [place] % (Auto) 9.8 Eos % (Auto) 1.9 L Baso % (Auto) 0.4 Neut # (Auto) 4500 Lymph # (Auto) 2200 [place] # (Auto) 800 Eos # (Auto) 100 Baso # (Auto) 0 Sodium Potassium Chloride Carbon Dioxide BUN Creatinine Estimated GFR BUN/Creatinine Ratio Glucose Calcium Magnesium 1.9 Total Bilirubin AST ALT Alkaline Phosphatase Total Protein Albumin Globulin Albumin/Globulin Ratio Blood Type Antibody Screen [facility]match [facility] Medical History Colostomy in place HTN (hypertension) Ovarian cancer Surgical History H/O partial resection of colon H/O total hysterectomy with bilateral salpingo-oophorectomy (BSO) Family History Mother Cancer Daughter Cancer Family/Other Cancer Social History household members: spouse Smoking Status: Never smoker Assessment & Plan Assessment & Plan narrative: 1. GI bleeding ?- unclear if upper or lower in nature. BUN slightly elevated at 28. EGD/colo planned for today ?- Continue protonix IV BID, IV fluids overnight ?- type and screen obtained. Goal Hg >7, unless further symptoms. ?- Appreciate surgical consultation ?- follow h/h. ?- no recent fever, chills to suggest infectious etiology. 2. Acute blood loss anemia secondary above ?- continue management as noted above 3. HTN ?- hold home lisinopril in setting of active bleeding. 4. History of colon, breast, ovarian cancer ?- reports no recent follow up with oncology. Last colonoscopy >6 years ago per patient. 5. BRCA2 + Time Spent With Patient Critical Care time: I spent a total of [] minutes of critical care time on this patient's care today; this time is exclusive of procedural time.
[2021-01-28] MEDS: ACETAMINOPHEN 325 MG TABLET 650 MG PO (21:04)
[2021-01-29] VITALS (7 sets, daily range): BP systolic 118–138; BP diastolic 69–92; PULSE 68–75; RESP 16; TEMP 35.7–36.9; O2SAT 95–98
[2021-01-29] MEDS: ACETAMINOPHEN 325 MG TABLET 650 MG PO (06:22)
[2021-01-29 06:53] LABS: Alanine Aminotransferase 17 IU/L (<35); Albumin 3.1 g/dL (3.5-5.0); Albumin Globulin Ratio 1.4 (1.0-2.8); Alkaline Phosphatase 46 U/L (38-126); Aspartate Aminotransferase 25 IU/L (14-36); BUN Creatinine Ratio 12.2 (6-22); Bilirubin Total 0.4 mg/dL (0.2-1.3); Blood Urea Nitrogen 9 mg/dL (7-17); Calcium 8.4 mg/dL (8.4-10.2); Carbon Dioxide 30 mmol/L (22-32); Chloride 105 mmol/L (98-107); Estimated Glomerular Filt Rate > 60.0 mL/min (>60); Globulin 2.2 g/dL (1.7-4.1); Glucose 86 mg/dL (80-110); HEMOLYSIS < 15 (0-50); Potassium 3.8 mmol/L (3.4-5.1); Sodium 137 mmol/L (137-145); Total Protein 5.3 g/dL (6.3-8.2)
[2021-01-29 06:54] LABS: Magnesium 2.1 mg/dL (1.6-2.3)
[2021-01-29 06:55] LABS: Add Manual Diff / Slide Review NO; Basophils Absolute Auto 100 /uL (0-100); Basophils Percent Auto 0.9 % (0-2); Eosinophils Absolute Auto 200 /uL (0-450); Eosinophils Percent Auto 1.8 % (2-4); Hematocrit 30.5 % (36-46); Hemoglobin 10.2 g/dL (12.0-16.0); Lymphocytes Absolute Auto 2100 /uL (1100-4500); Lymphocytes Percent Auto 24.2 % (25-40); Mean Corpuscular HGB Conc 33.5 % (30-36); Mean Corpuscular Hemoglobin 30.5 PG (26-34); Mean Corpuscular Volume 91.1 fL (80-100); Monocytes Absolute Auto 900 /uL (0-900); Neutrophils Absolute Auto 5500 /uL (1500-7000); Neutrophils Percent Auto 63.1 % (50-75); Platelet Count 171 X10^3/uL (150-400); Red Blood Cell Count 3.35 X10^6/uL (4.0-5.2); Red Cell Distribution Width 14.9 % (11.6-14.8); White Blood Cell Count 8.8 X10^3/uL (4.5-11.0)
--- NOTE | 2021-01-29 08:37 | P.DS_ITS ---
History of Present Illness History of Present Illness Chief complaint: Throwing Up Blood Narrative: Per Dr. Rojas: This is a 80-year-old female with a past medical history of hypertension, and history of ovarian, breast, and colon cancer status post partial colectomy with colostomy placement (BRCA2 +) who presented to the emergency room today with 2 days of hematemesis and black stool from her ostomy.? Over this time she has also felt lightheaded when she walks but denies any shortness of breath, abdominal pain, fever or chills.? She denies any recent rashes, joint pains, or muscle aches.? She thinks that she has increased slightly in her stoma output and it has been somewhat looser than her usual consistency.? She had a couple episodes of vomiting over the last couple of days that were which she described as dark ramos in color, as well as very dark appearing stool.? She states her last colonoscopy was over 6 years ago, and does not recall a prior EGD but may have had one in the remote past. In the emergency room, the patient's vital signs were unremarkable.? Initial laboratory evaluation showed a mild leukocytosis with WBC 12.4, mild anemia with hemoglobin of 9.4, her previous lab testing showed a hemoglobin of 14 in 2018.? Platelet count was unremarkable.? Initial chemistries were also unremarkable.? COVID-19 testing was negative.? In the emergency room, she was started on Protonix, had a type and screen, and the ER provider consult to General surgery who recommended admission to Medicine with a plan for colonoscopy and/or upper endoscopy tomorrow.? Discharge Providers Provider Date of admission: 01/28/21 16:18 Discharge Date: 01/29/21 Primary care physician: Antonia Porter PA-C Consults: 01/27/21 15:41 Consult to General Surgery Routine Comment: Consulting Provider: Elida Mitchell Reason for consultation: GI bleeding Has provider been notified: Yes Discharge provider: Serafin Hale MD Summary Hospital Course Discharge Diagnosis: 1. Acute GI bleed, likely upper with acute blood loss anemia 2. Esophagitis 3. HTN 4. BRCA+ with history of colon, breast, ovarian cancer Hospital Course: Ms. Morris was admitted with vomiting blood and having dark stools. She was started on IV PPI BID. Her BUN was elevated. She had a drop in her hemoglobin to low 7s and needed a blood transfusion of 2 units. She then underwent EGD and had evidence of inflammation in the esophagus with an hiatal hernia which surgery thought was possible the cause of bleed. There was no active bleeding noted during EGD. Colonoscopy was attempted but there was stool present and full visualization was not possible. She had no further acute bleeding, and her hemoglobin remained stable at discharge at 10.8. She should follow up with outpatient colonoscopy, she should be on PPI for 8 weeks. Exam Vital Signs (past 8 hours): Oxygen Delivery Method Room Air Oxygen Flow Rate 0 Narrative Exam Narrative: GENERAL APPEARANCE: no acute distress LUNGS: clear bilaterally, no wheezes, rhonchi, rales CARDIOVASCULAR: regular rate and rhythm with no murmurs ABDOMEN: Soft and nontender with normal bowel sounds Objective Labs Result Diagrams: 01/29/21 14:05 01/29/21 06:00 [facility] Medical History Colostomy in place HTN (hypertension) Ovarian cancer Surgical History H/O partial resection of colon H/O total hysterectomy with bilateral salpingo-oophorectomy (BSO) Family History Mother Cancer Daughter Cancer Family/Other Cancer Social History household members: spouse Smoking Status: Never smoker Discharge Plan Discharge Plan Patient Disposition: Home Provider Discharge Comment: Ms. Morris came in to the hospital with gastrointestinal bleeding. She did need blood transfusion. She did get a endoscopy and colonoscopy. It showed old bleeding. She has a hiatal hernia with esophagus ulcer and some irritation in the stomach. There was no active bleeding during the colonosocpy, but that area is likely the source of the bleeding. Biopsy was done. Her blood counts remained improved and she was able to be discharged with protonix to reduce acid levels in the stomach, and ondansteron for nausea. Discharge orders & Medications Prescriptions: New pantoprazole 40 mg tablet,delayed release (DR/EC) 40 mg PO BID Qty: 60 RF: 0 ondansetron 4 mg tablet,disintegrating 4 mg PO Q8H Qty: 30 RF: 0 Continued vitamin E 200 unit Capsule 200 unit PO DAILY RF: 0 calcium carbonate-vitamin D3 600 mg(1,500mg) -200 unit Tablet 1 tab PO DAILY RF: 0 lisinopril 10 mg Tablet 10 mg PO DAILY RF: 0 loratadine 10 mg Tablet 10 mg PO DAILY RF: 0 Follow up/Referrals: Antonia Porter PA-C [Primary Care Provider] - Diet/Activity/Treatments Diet: Diet as Tolerated Visit Report/Discharge Packet Instructions: Blood Transfusion, DI for Hiatal Hernia, DI for Gastrointestinal Bleeding Stand Alone Forms: EGD Result: Isld Surg Discharge Data Primary Care Provider: Antonia Porter Quality MIPS - DC The patient has current or prior documentation of left ventricular ejection fraction (LVEF) less than 40%, or moderate or severely depressed left ventricular systolic function.: No
--- NOTE | 2021-01-29 08:53 | PM.PN.1 ---
Subjective Subjective Date Patient Seen: 01/29/21 Time Patient Seen: 08:54 Interval history: Patient is frustrated. Exam Vital Signs (past 8 hours): - 01/29/21 01:05 01/29/21 05:00 Temperature 98.5 F Pulse Rate 71 Respiratory Rate 16 Blood Pressure 120/72 Pulse Oximetry 97 98 Oxygen Delivery Method Room Air Oxygen Flow Rate 0 Narrative Exam Narrative: abdomen is benign. colostomy bag full. Objective Labs Result Diagrams: 01/29/21 06:00 01/29/21 06:00 Labs: Laboratory Results - last 24 hr 01/27/21 01/28/21 01/29/21 13:35 17:10 06:00 WBC 10.2 RBC 3.53 L Hgb 10.8 L Hct 32.0 L MCV 90.6 D MCH 30.6 MCHC 33.7 RDW 14.7 Plt Count 182 Neut % (Auto) Lymph % (Auto) Owsley % (Auto) Eos % (Auto) Baso % (Auto) Neut # (Auto) Lymph # (Auto) [place]ws[place] # (Auto) Eos # (Auto) Baso # (Auto) Sodium 137 Potassium 3.8 Chloride 105 Carbon Dioxide 30 BUN 9 Creatinine 0.74 Estimated GFR > 60.0 BUN/Creatinine Ratio 12.2 Glucose 86 Calcium 8.4 Magnesium Total Bilirubin 0.4 AST 25 ALT 17 Alkaline Phosphatase 46 Total Protein 5.3 L Albumin 3.1 L Globulin 2.2 Albumin/Globulin Ratio 1.4 Blood Type O Positive Antibody Screen Negative Crossmatch See Detail 01/29/21 01/29/21 06:00 06:00 WBC 8.8 RBC 3.35 L Hgb 10.2 L Hct 30.5 L MCV 91.1 MCH 30.5 MCHC 33.5 RDW 14.9 H Plt Count 171 Neut % (Auto) 63.1 Lymph % (Auto) 24.2 L Owsley % (Auto) 10.0 Eos % (Auto) 1.8 L Baso % (Auto) 0.9 Neut # (Auto) 5500 Lymph # (Auto) 2100 [place] # (Auto) 900 Eos # (Auto) 200 Baso # (Auto) 100 Sodium Potassium Chloride Carbon Dioxide BUN Creatinine Estimated GFR BUN/Creatinine Ratio Glucose Calcium Magnesium 2.1 Total Bilirubin AST ALT Alkaline Phosphatase Total Protein Albumin Globulin Albumin/Globulin Ratio Blood Type Antibody Screen Crossmatch [facility] Medical History Colostomy in place HTN (hypertension) Ovarian cancer Surgical History H/O partial resection of colon H/O total hysterectomy with bilateral salpingo-oophorectomy (BSO) Family History Mother Cancer Daughter Cancer Family/Other Cancer Social History household members: spouse Smoking Status: Never smoker Assessment & Plan Assessment & Plan narrative: Erosion in the H/H and gastritis. Incomplete colonoscopy due to prep. Plan: treatment with po PPI BID for 8 weeks. Repeat attempt of colonoscopy as outpatient given the h/o colon cancer. anticipate dark stools for a couple days due to biopsy during EGD. Time Spent With Patient Time with patient: 30 to 49 minutes with 50% spent counseling/coordinating care Critical Care time: I spent a total of [] minutes of critical care time on this patient's care today; this time is exclusive of procedural time.
[2021-01-29] MEDS: PANTOPRAZOLE 40 MG VIAL IV (09:09)
[2021-01-29] MEDS: ONDANSETRON 4 MG/2 ML INJ IV (09:17)
--- NOTE | 2021-01-29 11:58 | CM.DPC ---
DCP Discharge Home Per MD, pt had her scope and only found old blood and pt seeming stable and will recheck her hemoglobin this afternoon and if stable then pt can d/c home today. Per RN, no concerns at this time. Plan: Patient to d/c home today via family POV and no further SW needs at this time. KENNETH Wiggins
[2021-01-29 14:19] LABS: Hemoglobin 10.8 g/dL (12.0-16.0)
--- NOTE | 2021-01-29 15:26 | PC.NURSE ---
Discharge instructions reviewed with patient, she states understanding and feels ready for discharge to home with her family. Port de accessed without difficulty. Patient tolerating meals. Instructed to follow up with her PCP as directed, or to seek care if symptoms return or worsen. Escorted out by ASSISTANT ACCOUNTING MANAGER with all her belongings.
== END 2021-01-29 15:33 | disposition home or self-care (01) | DRG 369 ==
LOC: ED 15:01 → AC 15:02
PROVIDERS: Internal Medicine; Surgery; Admitting Provider Internal Medicine; Emergency Provider Emergency Medicine; PCP Physician Assistant Medical; Referring Provider Emergency Medicine; Visit Provider Internal Medicine
PROC: 0DJ08ZZ Inspection of Upper Intestinal Tract, Via Natural or Artificial Opening Endoscopic (ICD-10-PCS; CPT 43235; principal; 2021-01-28 14:30)
PROC: 0DJD8ZZ Inspection of Lower Intestinal Tract, Via Natural or Artificial Opening Endoscopic (ICD-10-PCS; CPT 45378; 2021-01-28 14:30)
DX: K20.91 Esophagitis, unspecified with bleeding (principal); D62 Acute posthemorrhagic anemia; K44.9 Diaphragmatic hernia without obstruction or gangrene; I10 Essential (primary) hypertension; Z20.822 Contact with and (suspected) exposure to COVID-19; Z85.038 Personal history of other malignant neoplasm of large intestine
CPT/HCPCS: 36415; 36430; 36591; 43235; 44388; 80053; 83605; 83735; 85014; 85018; 85025; 85027; 86850; 86900; 86901; 87635; 93005; 94760; 96374; 96375; 99224; 99284; C9803; G0378; P9016; C9113; J1642; J2250; J2405; J3010

== ENCOUNTER → 2021-08-11 09:53 | Outpatient (CLI) | payer MEDICARE, OTHER, SELFPAY ==
[2021-06-20 11:21] VITALS: BMI 27.4
[2021-08-11 12:22] LABS: COVID19 -Nasal RAPID Negative (Negative)
== END ==
PROVIDERS: PCP Physician Assistant Medical; Visit Provider Surgery
DX: Z01.812 Encounter for preprocedural laboratory examination (principal); Z20.822 Contact with and (suspected) exposure to COVID-19
CPT/HCPCS: 87635; C9803

== ENCOUNTER 2021-08-12 12:01 | Day surgery (SDC) | payer MEDICARE, OTHER, SELFPAY ==
[2021-06-20 11:21] VITALS: BMI 27.4
[2021-08-12 12:30] VITALS: BP 155/84; PULSE 69; RESP 16; TEMP 36.4; O2SAT 98; BMI 26.5
[2021-08-12] MEDS: LACTATED RINGERS 1,000 ML 200 ML IV (12:35)
--- NOTE | 2021-08-12 12:54 | PM.HP.1 ---
History of Present Illness History of Present Illness Date Patient Seen: 08/12/21 Time Patient Seen: 12:55 Chief complaint: SDC Narrative: 81-year-old woman history of an APR for low rectal cancer here for colonoscopy secondary to episodes of blood per colostomy. She had an attempted colonoscopy several months ago which was incomplete secondary to poor prep. Patient History Medical History Colostomy in place HTN (hypertension) Ovarian cancer Surgical History H/O partial resection of colon H/O total hysterectomy with bilateral salpingo-oophorectomy (BSO) Family & Social History Family History Mother Cancer Daughter Cancer Family/Other Cancer Social History: household members family Tobacco & Substance use: Smoking Status Never smoker alcohol intake frequency other Substance Use Type does not use Meds Home Medications and Allergies Home Medications Medication Instructions Recorded Confirmed Type calcium carbonate 600 mg-vitamin 1 tab PO DAILY 01/27/21 08/12/21 History D3 5 mcg (200 unit) tablet loratadine 10 mg tablet 10 mg PO DAILY 01/27/21 08/12/21 History pantoprazole 40 mg tablet,delayed 40 mg PO BID #60 tab 01/29/21 08/12/21 Rx release losartan 50 mg tablet 50 mg PO DAILY 07/10/21 08/12/21 History Allergies Allergy/AdvReac Type Severity Reaction Status Date / Time Penicillins Allergy Intermediate Verified 08/12/21 12:19 Exam Vital Signs (past 8 hours): - 08/12/21 12:30 Temperature 97.5 F L Pulse Rate 69 Respiratory Rate 16 Blood Pressure 155/84 H Pulse Oximetry 98 Oxygen Delivery Method Room Air Narrative Exam Narrative: General adult oriented no acute distress Chest nonlabored respirations Extremities warm well perfused Assessment & Plan Assessment and plan (1) Acute GI bleeding: Status: Acute Assessment & Plan narrative: 81-year-old woman with history of APR for low rectal cancer with intermittent blood blood per colostomy here for colonoscopy. Procedure was discussed with her including risks of bleeding, missed diagnosis, intestinal perforation, anesthetic complication. Her questions have been answered and she is in agreement with this plan. Time Spent With Patient Critical Care time: I spent a total of [] minutes of critical care time on this patient's care today; this time is exclusive of procedural time.
[2021-08-12] MEDS: fentaNYL 250 MCG/5 ML INJ IV (13:15)
[2021-08-12] MEDS: MIDAZOLAM 5 MG/5 ML VIAL IV (13:15)
--- NOTE | 2021-08-12 13:26 | PM.OP.COLON ---
Operative Date/Time/Diagnoses Date of procedure: 08/12/21 Time of procedure: 13:26 Pre-op diagnosis: GI bleed Post-op diagnosis: same Procedure & Clinicians Study performed: Colonoscopy Same procedure as scheduled: Yes Indications: History of rectal cancer status post APR with GI bleed Surgeon: Hung Rodriguez Procedure Notes Procedure in detail: Medications: Conscious sedation using 5mg IV midazolam and 100mcg IV of fentanyl The history and physical was performed/updated and the patient is ASA class is 2. The procedure was discussed in detail with the patient. Potential risks complications including infection, bleeding, missed diagnosis, perforation, need for surgery, and were explained. Their questions were answered and informed consent was obtained. Patient was brought to the procedure room and placed standard monitoring equipment. The patient's vital signs were monitored continuously throughout the entire procedure. Prior to starting time-out was performed. The patient was placed in the left lateral recumbent position. Procedural sedation was administered. . The colonoscopy scope was then placed into colostomy and was advanced to the cecum, which was identified by the ileocecal valve, the appendiceal orifice and the confluence of the taenia. The scope was then slowly withdrawn examining colon thoroughly in all directions, irrigating it of any residual stool. FINDINGS 1. Normal colon status post APR 2. No masses or polyps The patient tolerated the procedure well. They will be discharged once criteria are met. The prep was of good/excellent quality. The withdrawl time was 6 minutes. The sedation time was 19 minutes. Specimen(s): none sent Complications: none Impression: Normal colonoscopy Post-procedure Disposition: same day surgery
[2021-08-12 13:32] VITALS: BP 134/71; PULSE 66; RESP 12; TEMP 36.2; O2SAT 94
[2021-08-12 13:37] VITALS: BP 120/64; PULSE 57; RESP 13; O2SAT 96
[2021-08-12 13:41] VITALS: BP 128/70; PULSE 60; RESP 17; O2SAT 96
[2021-08-12 13:46] VITALS: BP 122/68; PULSE 66; RESP 10; TEMP 36.6; O2SAT 94
[2021-08-12 14:05] VITALS: BP 124/72; PULSE 58; RESP 18; TEMP 36.2; O2SAT 99
== END 2021-08-12 14:25 | disposition home or self-care (01) ==
PROVIDERS: PCP Physician Assistant Medical; Referring Provider Surgery; Visit Provider Surgery
PROC: 0DJD8ZZ Inspection of Lower Intestinal Tract, Via Natural or Artificial Opening Endoscopic (ICD-10-PCS; CPT 45378; principal; 2021-08-12 13:00)
DX: K92.2 Gastrointestinal hemorrhage, unspecified (principal); Z85.048 Personal history of other malignant neoplasm of rectum, rectosigmoid junction, and anus
CPT/HCPCS: 45378; 99152; J2250; J3010